=== PATIENT | male | born 2000 | race Caucasian/White ===

== ENCOUNTER 2021-05-09 17:41 | Emergency (ER) | payer SELFPAY | END 2021-05-09 20:52 | disposition left against medical advice (07) | LOC: ER 17:42 | DX: Z53.21 Procedure and treatment not carried out due to patient leaving prior to being seen by health care provider (principal) ==

== ENCOUNTER 2021-07-03 23:07 | Emergency (ER) | payer OTHER ==
[~2021-07-03] VITALS: Ht 185.4 cm; Wt 70.5 kg
[2021-07-03 23:33] VITALS: BP 136/76
== END 2021-07-03 23:49 | disposition home or self-care (01) ==
LOC: ER 23:08
DX: R07.89 Other chest pain (principal); Z20.822 Contact with and (suspected) exposure to COVID-19; R06.02 Shortness of breath; R11.0 Nausea; J45.909 Unspecified asthma, uncomplicated
CPT/HCPCS: 71045; 87635; 93005; 99285; C9803

== ENCOUNTER 2021-07-14 10:06 | Emergency (ER) | payer OTHER ==
[~2021-07-14] VITALS: Ht 185.4 cm; Wt 68.2 kg
[2021-07-14 10:36] VITALS: BP 113/78
== END 2021-07-14 13:00 | disposition left against medical advice (07) ==
LOC: ER 10:07
DX: R42 Dizziness and giddiness (principal); Z20.822 Contact with and (suspected) exposure to COVID-19; Z53.21 Procedure and treatment not carried out due to patient leaving prior to being seen by health care provider
CPT/HCPCS: 87635; C9803

== ENCOUNTER 2022-12-28 02:27 | Emergency (ER) | payer MEDICAID, OTHER ==
[~2022-12-28] VITALS: Ht 180.3 cm; Wt 64.2 kg
[2022-12-28 02:31] VITALS: TEMP 98.2
[2022-12-28] MEDS ORDERED: albuterol 2.5 MG/3 ML nebule NEB ONE (02:50)
[2022-12-28 02:56] VITALS: PULSE 77; RESP 16; O2SAT 99
[2022-12-28 03:00] VITALS: BP 118/77
[2022-12-28 03:02] VITALS: PULSE 70; RESP 16; O2SAT 100
[2022-12-28 03:26] LABS: BASOPHILS % (AUTO) 0.4 % (0-1); EOSINOPHILS # (AUTO) 0.2 X10'3 (0-0.9); EOSINOPHILS % (AUTO) 2.1 % (0-6); HEMATOCRIT 45.2 % (42.0-52.0); HEMOGLOBIN 15.7 g/dl (14.0-17.9); LYMPHOCYTES # (AUTO) 2.7 X10'3 (1.1-4.8); LYMPHOCYTES % (AUTO) 37.4 % (21-51); MEAN CORPUSCULAR HEMOGLOBIN 30.3 PG (27.0-31.0); MEAN CORPUSCULAR HGB CONC 34.7 g/dL (33.0-36.5); MEAN CORPUSCULAR VOLUME 87.3 FL (78-98); MEAN PLATELET VOLUME 8.8 FL (7.4-10.4); MONOCYTES # (AUTO) 0.6 X10'3 (0-0.9); MONOCYTES % (AUTO) 7.7 % (2-12); NEUTROPHILS # (AUTO) 3.8 X10'3 (1.8-7.7); NEUTROPHILS % (AUTO) 52.4 % (42-75); PLATELET COUNT 268 X10'3 (140-440); RED BLOOD COUNT 5.18 X10'6 (4.70-6.10); RED CELL DISTRIBUTION WIDTH 12.8 % (11.5-14.5); WHITE BLOOD COUNT 7.2 X10'3 (4.5-11.0)
[2022-12-28] MEDS ORDERED: ALB0.5UD IH (03:30)
[2022-12-28 03:37] LABS: ALANINE AMINOTRANSFERASE 53 U/L (12-78); ALBUMIN 4.4 G/DL (3.4-5.0); ALBUMIN/GLOBULIN RATIO 1.4 (1.1-1.5); ALKALINE PHOSPHATASE 73 IU/L (46-116); ANION GAP 12 (8-16); ASPARTATE AMINO TRANSFERASE 24 U/L (10-37); BILIRUBIN,TOTAL 0.7 MG/DL (0.1-1.0); BLOOD UREA NITROGEN 14 MG/DL (7-18); BUN/CREATININE RATIO 14.6 (10.0-20.0); CHLORIDE 103 MMOL/L (99-107); CREATININE 0.96 MG/DL (0.60-1.10); GLUCOSE 110 MG/DL (70-104); POTASSIUM 3.4 MMOL/L (3.5-5.1); SODIUM 142 MMOL/L (135-145); TOTAL CARBON DIOXIDE 26.8 MMOL/L (24-32); TOTAL PROTEIN 7.5 G/DL (6.4-8.2); eGFR > 90 ML/MIN
[2022-12-28 03:48] VITALS: RESP 18
[2022-12-28 04:09] LABS: APTT 29 SECONDS (22-32)
[2022-12-28 04:16] LABS: D-DIMER < 0.19 MG/L FEU (0-0.50)
== END 2022-12-28 04:32 | disposition home or self-care (01) ==
LOC: ER 02:29
DX: R07.89 Other chest pain (principal); J45.909 Unspecified asthma, uncomplicated; Z91.030 Bee allergy status; Z79.899 Other long term (current) drug therapy
CPT/HCPCS: 36415; 71045; 80053; 84484; 85025; 85379; 85610; 85730; 93005; 94640; 94760; 99285

== ENCOUNTER 2023-02-11 00:03 | Emergency (ER) | payer MEDICAID ==
[~2023-02-11] VITALS: Ht 182.9 cm; Wt 62.4 kg
[2023-02-11 00:14] VITALS: BP 109/78; PULSE 77; RESP 18; TEMP 98.3; O2SAT 99
== END 2023-02-11 01:38 | disposition home or self-care (01) ==
LOC: ER 00:04
DX: K59.00 Constipation, unspecified (principal); J45.909 Unspecified asthma, uncomplicated; Z91.030 Bee allergy status; Z79.899 Other long term (current) drug therapy
CPT/HCPCS: 99282

== ENCOUNTER 2023-02-18 22:58 | Emergency (ER) | payer MEDICAID ==
[~2023-02-18] VITALS: Ht 180.3 cm; Wt 72.7 kg
[2023-02-18 23:06] VITALS: BP 129/89; PULSE 107; RESP 18; TEMP 97.8; O2SAT 100
== END 2023-02-19 00:54 | disposition left against medical advice (07) ==
LOC: ER 22:59
DX: R07.9 Chest pain, unspecified (principal); Z53.21 Procedure and treatment not carried out due to patient leaving prior to being seen by health care provider
CPT/HCPCS: 99281

== ENCOUNTER 2023-02-20 14:34 | Emergency (ER) | payer MEDICAID ==
[~2023-02-20] VITALS: Ht 182.9 cm; Wt 72.7 kg
[2023-02-20 14:42] VITALS: BP 140/81; PULSE 114; RESP 16; TEMP 98.3; O2SAT 100
== END 2023-02-20 17:09 | disposition left against medical advice (07) ==
LOC: ER 14:36
DX: R55 Syncope and collapse (principal); Z53.21 Procedure and treatment not carried out due to patient leaving prior to being seen by health care provider
CPT/HCPCS: 93005; 99281

== ENCOUNTER 2023-03-22 00:45 | Emergency (ER) | payer MEDICAID ==
[~2023-03-22] VITALS: Ht 177.8 cm; Wt 75.0 kg
[2023-03-22 00:48] VITALS: BP 138/81; PULSE 83; RESP 20; TEMP 98.3; O2SAT 100
[2023-03-22 01:16] LABS: BASOPHILS % (AUTO) 0.3 % (0-1); EOSINOPHILS % (AUTO) 0.3 % (0-6); HEMATOCRIT 44.4 % (42.0-52.0); HEMOGLOBIN 15.5 g/dl (14.0-17.9); LYMPHOCYTES # (AUTO) 1.8 X10'3 (1.1-4.8); LYMPHOCYTES % (AUTO) 26.3 % (21-51); MEAN CORPUSCULAR HEMOGLOBIN 30.7 PG (27.0-31.0); MEAN CORPUSCULAR VOLUME 87.6 FL (78-98); MONOCYTES # (AUTO) 0.5 X10'3 (0-0.9); MONOCYTES % (AUTO) 6.6 % (2-12); NEUTROPHILS # (AUTO) 4.6 X10'3 (1.8-7.7); NEUTROPHILS % (AUTO) 66.5 % (42-75); PLATELET COUNT 172 X10'3 (140-440); RED BLOOD COUNT 5.06 X10'6 (4.70-6.10); WHITE BLOOD COUNT 6.9 X10'3 (4.5-11.0)
[2023-03-22 01:24] LABS: ALANINE AMINOTRANSFERASE 13 U/L (12-78); ALBUMIN 4.7 G/DL (3.4-5.0); ALBUMIN/GLOBULIN RATIO 1.6 (1.1-1.5); ALKALINE PHOSPHATASE 59 IU/L (46-116); ANION GAP 15 (8-16); ASPARTATE AMINO TRANSFERASE 13 U/L (10-37); BILIRUBIN,TOTAL 1.4 MG/DL (0.1-1.0); BLOOD UREA NITROGEN 12 MG/DL (7-18); BUN/CREATININE RATIO 11.2 (10.0-20.0); CALCIUM 9.7 MG/DL (8.5-10.1); CHLORIDE 101 MMOL/L (99-107); CREATININE 1.07 MG/DL (0.60-1.10); GLUCOSE 100 MG/DL (70-104); POTASSIUM 3.2 MMOL/L (3.5-5.1); SODIUM 140 MMOL/L (135-145); TOTAL CARBON DIOXIDE 24.2 MMOL/L (24-32); TOTAL PROTEIN 7.6 G/DL (6.4-8.2); eCRCL 113 ML/MIN; eGFR 87 ML/MIN
[2023-03-22 01:31] LABS: PRO BRAIN NATRIURETIC PEPTIDE 54 PG/ML (0-125)
--- NOTE | 2023-03-22 02:30 | NUR ---
PATIENT SPOKE TO NURSE TO STATE HE IS GOING TO GO HOME, DOES NOT WANT TO WAIT ANYMORE. PATIENT AMBULATORY UPON LEAVING, ABLE TO SPEAK IN FULL SENTENCES, NO SIGNS OF DISTRESS NOTED.
== END 2023-03-22 02:31 | disposition left against medical advice (07) ==
LOC: ER 00:46
DX: F41.9 Anxiety disorder, unspecified (principal); R07.89 Other chest pain; Z53.21 Procedure and treatment not carried out due to patient leaving prior to being seen by health care provider
CPT/HCPCS: 36415; 80053; 83880; 84484; 85025; 93005; 99281

== ENCOUNTER 2023-04-03 22:46 | Emergency (ER) | payer MEDICAID ==
[~2023-04-03] VITALS: Ht 180.3 cm; Wt 165.0 kg
[2023-04-04 01:35] VITALS: BP 117/71; PULSE 55; RESP 18; TEMP 98.2; O2SAT 99
== END 2023-04-04 01:39 | disposition home or self-care (01) ==
LOC: ER 22:46
DX: R07.9 Chest pain, unspecified (principal)
CPT/HCPCS: 93005; 99283